=== PATIENT | male | born 1970 | race Native Hawaiian/Other Pacific Islander ===

== ENCOUNTER 2020-12-29 11:50 | Outpatient (CLI) | payer BC | END 2020-12-29 20:05 | disposition home or self-care (01) | LOC: RAD 11:50 | PROVIDERS: ATTEND Nurse Practitioner Family | DX: R05 Cough (principal); J40 Bronchitis, not specified as acute or chronic ==

== ENCOUNTER 2020-12-30 11:04 | Emergency (ER) | payer BC ==
[~2020-12-30] VITALS: Ht 175.3 cm; Wt 77.6 kg
[2020-12-30 11:43] LABS: PLATELET COUNT 309 K/uL (142-355)
[2020-12-30 12:06] LABS: PARTIAL THROMBOPLASTIN TIME 24.9 SECONDS (24.5-33.6)
[2020-12-30 12:20] LABS: POTASSIUM 3.6 mmol/L (3.6-5.2)
[2020-12-30 18:30] VITALS: BP 136/79; TEMP 98.1
== END 2020-12-30 18:30 | disposition short-term general hospital (02) ==
LOC: ED 11:04
PROVIDERS: Emergency Medicine Emergency Medical Services
DX: J93.83 Other pneumothorax (principal); Z11.52 Encounter for screening for COVID-19; F17.210 Nicotine dependence, cigarettes, uncomplicated
CPT/HCPCS: 36415; 80053; 85027; 85610; 85730; 87635; 96360; 96361; 96375; 96376; 99284; J2270; J2405; U0003

== ENCOUNTER 2022-06-16 15:34 | Outpatient (CLI) | payer BC | END 2022-06-16 19:44 | disposition home or self-care (01) | LOC: US 15:34 | PROVIDERS: ATTEND Nurse Practitioner Family | DX: N50.819 Testicular pain, unspecified (principal) ==